=== PATIENT | male | born 1990 | race Caucasian/White ===

== ENCOUNTER 2019-08-02 20:19 | Emergency (ER) | payer SELFPAY ==
[~2019-08-02] VITALS: Ht 182.9 cm; Wt 72.6 kg
[2019-08-02 20:19] VITALS: BP 152/88
== END 2019-08-02 20:44 | disposition home or self-care (01) ==
LOC: ER 20:24
DX: S61.213D Laceration without foreign body of left middle finger without damage to nail, subsequent encounter (principal); Z60.2 Problems related to living alone; X58.XXXD Exposure to other specified factors, subsequent encounter